=== PATIENT | female | born 1985 | race Caucasian/White ===

== ENCOUNTER 2024-03-06 21:04 | Inpatient (IN) | payer OTHER ==
[2024-03-06 21:48] VITALS: BMI 32.9
[2024-03-06] MEDS ORDERED: chlordiazePOXIDE HCL 25 MG CAPSULE ONE (22:41)
[2024-03-06] MEDS: chlordiazePOXIDE HCL 25 MG CAPSULE PO ONE (22:44)
[2024-03-06] MEDS: ACETAMINOPHEN 325 MG TABLET (FP) PO ONE (22:47)
[2024-03-06] MEDS ORDERED: ACETAMINOPHEN 325 MG TABLET (FP) ONE (22:47)
[2024-03-07] MEDS ORDERED: BISMUTH SUBSALICYLATE 524 MG/30 ML PO PRN (04:52)
[2024-03-07] MEDS ORDERED: DICYCLOMINE HCL 10 MG CAPSULE PO PRN (04:52)
[2024-03-07] MEDS ORDERED: BENZOCAINE/MENTHOL (CHLORASEPTIC ) LOZENGE MM PRN (04:52)
[2024-03-07] MEDS ORDERED: LOPERAMIDE HCL 2 MG CAPSULE PO PRN (04:52)
[2024-03-07] MEDS ORDERED: guaiFENesin 600 MG TABLET.ER (FP) PO PRN (04:52)
[2024-03-07] MEDS ORDERED: NALOXONE HCL 0.4 MG/ML VIAL IM PRN (04:52)
[2024-03-07] MEDS ORDERED: NICOTINE POLACRILEX 4 MG GUM BUC PRN (04:52)
[2024-03-07] MEDS ORDERED: MAGNESIUM HYDROX 2400MG/30ML ORAL SUSPENSION 30 ML CUP PO PRN (04:52)
[2024-03-07] MEDS ORDERED: ACETAMINOPHEN 325 MG TABLET (FP) PO PRN (04:52)
[2024-03-07] MEDS ORDERED: MAG HYDROX/AL HYDROX/SIMETH 30 ML UNIT-DOSE CUP PO PRN (04:52)
[2024-03-07] MEDS ORDERED: IBUPROFEN 400 MG TABLET (FP) PO PRN (04:52)
[2024-03-07] MEDS ORDERED: IBUPROFEN 600 MG TABLET (FP) PO PRN (04:52)
[2024-03-07] MEDS ORDERED: NALOXONE HCL (KLOXXADO) 8 MG SPRAY NS PRN (04:52)
[2024-03-07] MEDS ORDERED: POLYETHYLENE GLYCOL (HEALTHYLAX) 3350 17 GM PACKET PO PRN (04:52)
[2024-03-07] MEDS ORDERED: BENZONATATE 200 MG CAPSULE PO PRN (04:52)
[2024-03-07] MEDS ORDERED: chlordiazePOXIDE HCL 25 MG CAPSULE ONE (05:01)
[2024-03-07] MEDS: chlordiazePOXIDE HCL 25 MG CAPSULE PO SCH (05:02)
[2024-03-07] MEDS: chlordiazePOXIDE HCL 25 MG CAPSULE PO ONE (06:24)
[2024-03-07] MEDS ORDERED: ALBUTEROL SO4 HFA INHALER IH PRN (06:47)
[2024-03-07] MEDS: PRENATAL VITAMINS W/ FOLIC ACID TABLET (FP) PO SCH (10:05)
[2024-03-07] MEDS: NICOTINE 21 MG/24 HOURS TOPICAL PATCH TD SCH (10:05)
[2024-03-07 13:01] LABS: HEMATOCRIT 32.7 % (32.4-45.2); HEMOGLOBIN 10.5 GM/dL (10.7-15.3); MCH 25.3 pg (25.7-33.7); MCHC 32.2 g/dl (32.0-36.0); MEAN CELL VOLUME 78.4 fl (80-96); MEAN PLT VOLUME 9.5 fl (7.5-11.1); PLATELET COUNT 137 10^3/uL (134-434); RBC 4.16 M/mm3 (3.60-5.2); RDW 20.2 % (11.6-15.6); WHITE BLOOD COUNT 4.6 K/mm3 (4.0-10.0)
[2024-03-07 13:02] LABS: POTASSIUM 3.9 mmol/L (3.5-5.1)
[2024-03-07 13:10] LABS: ALBUMIN 3.4 g/dl (3.4-5.0); BLOOD UREA NITROGEN 10.4 mg/dL (7-18); CALCIUM 8.8 mg/dL (8.5-10.1)
[2024-03-07 13:11] LABS: CREATININE 0.7 mg/dL (0.55-1.3)
[2024-03-07 13:13] LABS: TOT PROT 6.8 g/dl (6.4-8.2)
[2024-03-07 13:16] LABS: BILIRUBIN,TOTAL 0.8 mg/dL (0.2-1)
[2024-03-07] MEDS: chlordiazePOXIDE HCL 25 MG CAPSULE PO PRN (14:13)
[2024-03-07] MEDS ORDERED: LORazepam 1 MG TABLET PO PRN (15:34)
[2024-03-07] MEDS: LORazepam 2 MG TABLET PO SCH (17:31)
[2024-03-07] MEDS: hydrOXYzine PAMOATE 25 MG CAPSULE (FP) PO PRN (17:32)
[2024-03-07] MEDS ORDERED: MELATONIN 5 MG TABLETS PO SCH (22:00)
[2024-03-07] MEDS: MELATONIN 5 MG TABLETS PO SCH (22:19)
[2024-03-07] MEDS: THIAMINE 100 MG TABLET PO SCH (22:19)
[2024-03-07] MEDS: METHOCARBAMOL 500 MG TABLET PO PRN (22:20)
[2024-03-08] MEDS ORDERED: chlordiazePOXIDE HCL 25 MG CAPSULE PO SCH (05:00)
[2024-03-08] MEDS: ONDANSETRON *ODT* 4 MG TABLET SL PRN (17:29)
[2024-03-09] MEDS ORDERED: chlordiazePOXIDE HCL 10 MG CAPSULE PO PRN
[2024-03-09] MEDS ORDERED: chlordiazePOXIDE HCL 10 MG CAPSULE PO SCH (05:00)
[2024-03-09] MEDS: LORazepam 1 MG TABLET PO SCH (05:57)
[2024-03-09] MEDS: NALTREXONE HCL 50 MG TABLET PO SCH (14:54)
[2024-03-10] MEDS ORDERED: chlordiazePOXIDE HCL 10 MG CAPSULE PO SCH (05:00)
[2024-03-10] MEDS: LORazepam 0.5 MG TABLET PO SCH (06:26)
[2024-03-10] MEDS: LORazepam 0.5 MG TABLET PO PRN (06:28)
[2024-03-11] MEDS ORDERED: chlordiazePOXIDE HCL 10 MG CAPSULE PO ONE (05:00)
[2024-03-11] MEDS: LORazepam 0.5 MG TABLET PO ONE (05:29)
[2024-03-11 10:36] VITALS: BP 116/72; PULSE 85; RESP 18; TEMP 97.8
== END 2024-03-11 09:55 | disposition home or self-care (01) | DRG 775 ==
LOC: YASAS 21:04 → Y6N 03-07 05:17
PROVIDERS: ADMIT Allergy & Immunology; ATTEND Allergy & Immunology
PROC: HZ2ZZZZ Detoxification Services for Substance Abuse Treatment (ICD-10-PCS; principal; 2024-03-07)
DX: F10.230 Alcohol dependence with withdrawal, uncomplicated (principal); F10.280 Alcohol dependence with alcohol-induced anxiety disorder; F10.24 Alcohol dependence with alcohol-induced mood disorder; F10.282 Alcohol dependence with alcohol-induced sleep disorder; F17.210 Nicotine dependence, cigarettes, uncomplicated; F41.9 Anxiety disorder, unspecified; J45.20 Mild intermittent asthma, uncomplicated; R74.01 Elevation of levels of liver transaminase levels; Z62.810 Personal history of physical and sexual abuse in childhood; Z91.410 Personal history of adult physical and sexual abuse; Z63.8 Other specified problems related to primary support group; Z63.0 Problems in relationship with spouse or partner; Z59.00 Homelessness unspecified
CPT/HCPCS: 36415; 80053; 80305; 80307; 81025; 82140; 84450; 85027; 86780; 86803; Q0162

== ENCOUNTER 2024-03-07 00:38 | Emergency (ER) | payer OTHER ==
[2024-03-07 00:47] VITALS: BP 112/71; PULSE 101; RESP 18; TEMP 98.8; BMI 32.9
[2024-03-07] MEDS ORDERED: ACETAMINOPHEN 325 MG TABLET (FP) ONE (01:32)
[2024-03-07] MEDS: ACETAMINOPHEN 325 MG TABLET (FP) PO ONE (01:48)
[2024-03-07] MEDS ORDERED: DIPHTH,PERTUSS(ACELL),TET 0.5 ML DISP.SYRIN IM ONE (03:41)
[2024-03-07] MEDS: DIPHTH,PERTUSS(ACELL),TET 0.5 ML DISP.SYRIN IM ONE (03:45)
== END 2024-03-07 04:03 | disposition home or self-care (01) ==
LOC: JER 00:38
PROC: 3E0234Z Introduction of Serum, Toxoid and Vaccine into Muscle, Percutaneous Approach (ICD-10-PCS; principal; 2024-03-07)
DX: S59.901A Unspecified injury of right elbow, initial encounter (principal); S99.911A Unspecified injury of right ankle, initial encounter; W19.XXXA Unspecified fall, initial encounter; F10.99 Alcohol use, unspecified with unspecified alcohol-induced disorder; W01.0XXA Fall on same level from slipping, tripping and stumbling without subsequent striking against object, initial encounter
CPT/HCPCS: 70450-TC; 73070-TC-RT-FY; 73610-TC-RT-FY; 73630-TC-RT-FY; 84703; 90471; 90715; 93005; 93010; 99285-25